=== PATIENT | male | born 1965 | race Caucasian/White ===

== ENCOUNTER 2024-04-24 06:24 | Day surgery (SDC) | payer OTHER, SELFPAY | END 2024-04-24 09:46 | disposition home or self-care (01) | LOC: GI 06:24 | PROVIDERS: ATTENDING PHYSICIAN Internal Medicine | DX: Z12.11 Encounter for screening for malignant neoplasm of colon (principal); K64.9 Unspecified hemorrhoids; K57.30 Diverticulosis of large intestine without perforation or abscess without bleeding; D12.3 Benign neoplasm of transverse colon; D12.0 Benign neoplasm of cecum; D12.5 Benign neoplasm of sigmoid colon; D12.2 Benign neoplasm of ascending colon; Z86.0101 Personal history of adenomatous and serrated colon polyps | CPT/HCPCS: 45385; 45381; 88305 ==

== ENCOUNTER 2024-06-26 06:18 | Day surgery (SDC) | payer OTHER, SELFPAY ==
[2024-06-26 10:35] VITALS: BP 136/84; BMI 25.0
[2024-06-26 13:53] VITALS: BP 133/80
== END 2024-06-26 14:34 | disposition home or self-care (01) ==
LOC: GI 06:18
PROVIDERS: ATTENDING PHYSICIAN Internal Medicine Gastroenterology
DX: K64.0 First degree hemorrhoids (principal); D12.2 Benign neoplasm of ascending colon
CPT/HCPCS: 45390; 45385; 88305